=== PATIENT | female | born 1945 | race Caucasian/White ===

== ENCOUNTER → 2018-08-20 | Outpatient (CLI) | payer OTHER | END | disposition home or self-care (01) | LOC: OIH 12:29 | PROVIDERS: ATTEND Internal Medicine | DX: Z13.6 Encounter for screening for cardiovascular disorders (principal) | CPT/HCPCS: 75571 ==

== ENCOUNTER → 2020-10-05 | Outpatient (CLI) | payer OTHER | END | disposition home or self-care (01) | LOC: OIH 14:37 | PROVIDERS: ATTEND Internal Medicine | DX: Z13.6 Encounter for screening for cardiovascular disorders (principal) | CPT/HCPCS: 75571 ==

== ENCOUNTER → 2025-01-29 | Outpatient (CLI) | payer MEDICARE ==
--- NOTE | 2025-01-29 16:29 | HMCIMG ---
STUDY: X-RAY OF THE CHEST, 2 VIEWS HISTORY: Chronic obstructive pulmonary disease (COPD). TECHNIQUE: PA and lateral views of the chest are submitted for interpretation. COMPARISON: None provided. FINDINGS: Pulmonary tao: Mild emphysematous changes with hyperlucent lung tao and mild interstitial thickening, compatible with COPD. No focal consolidation, pulmonary edema, or discrete pulmonary nodule is identified. Cardiac silhouette: Cardiac silhouette is within normal limits for size and contour. Mediastinum and elijah: Mediastinal contours and hilar structures are unremarkable without evidence of mediastinal widening or hilar mass. Osseous structures: Mild degenerative changes are present in the visualized spine with a mild scoliotic deformity. No acute fracture or destructive osseous lesion is identified. Miscellaneous: No pleural effusion or pneumothorax is seen. Costophrenic angles are sharp bilaterally. No subdiaphragmatic free air is identified. IMPRESSION: * Mild emphysematous and interstitial changes consistent with the history of COPD, without radiographic evidence of acute pulmonary infection or edema. * Mild degenerative changes and mild scoliotic deformity of the thoracic spine. /[place]
== END | disposition home or self-care (01) ==
LOC: RAH 11:24
PROVIDERS: ATTEND Internal Medicine
DX: J44.9 Chronic obstructive pulmonary disease, unspecified (principal); M47.814 Spondylosis without myelopathy or radiculopathy, thoracic region; M41.84 Other forms of scoliosis, thoracic region; M43.8X4 Other specified deforming dorsopathies, thoracic region
CPT/HCPCS: 71046